=== PATIENT | female | born 1960 | race American Indian/Alaskan Native ===

== ENCOUNTER 2017-11-02 14:02 | Outpatient (CLI) | payer MEDICARE ==
[2017-11-02 14:55] LABS: Blood Urea Nitrogen 12 mg/dL (7-17)
--- NOTE | 2017-11-02 15:24 | Cat Scan Report ---
CTA CHEST INDICATION: Shortness of breath. COMPARISON: None similar. FINDINGS: Chest CTA performed following intravenous administration of 100 cc of Omnipaque 350. Rotational MIP's also obtained. Borderline cardiomegaly. No effusions. No aortic aneurysm, dissection or suspicious pulmonary arterial filling defects, to the extent assessed. Patent central airway. No size significant adenopathy. Few small right hilar calcifications. Normal thyroid. Few small peripheral right middle lobe calcified granulomas as on axial series 2, images 113-122, the largest 0.7 cm. Otherwise unremarkable lungs. Nonspecific distal esophageal wall prominence/thickening, not excluded for gastroesophageal reflux and/or hiatal hernia, amongst others. No significant abnormality in the included upper abdomen. Multilevel thoracic spine degenerative spurring. Right shoulder postsurgical changes. CONCLUSION: No acute chest CT abnormality with mild cardiomegaly, old healed granulomatous disease and few other findings, as above. Please correlate. Thank you for the opportunity to participate in this patient's care.
== END 2017-11-02 14:03 | disposition home or self-care (01) ==
LOC: CT 14:02
PROVIDERS: ATTEND Internal Medicine
DX: I51.7 Cardiomegaly (principal); J84.10 Pulmonary fibrosis, unspecified; M53.84 Other specified dorsopathies, thoracic region
CPT/HCPCS: 36415; 71275; 82565; 84520; Q9967